=== PATIENT | female | born 2005 | race Two or more races ===

== ENCOUNTER 2025-02-19 15:54 | Emergency (ER) | payer OTHER ==
[~2025-02-19] VITALS: Ht 162.6 cm; Wt 65.8 kg
[2025-02-19] MEDS ORDERED: 0.9 % SODIUM CHLORIDE 1,000 ML IV SCH (16:45)
[2025-02-19 17:21] LABS: BASO % 0.5 % (0.1-1.2); EOS # 0.07 (0.04-0.54); EOS % 1.1 % (0.7-7.0); LYMPH % 17.3 % (19.3-53.1); MEAN CORPUSCULAR HEMOGLOBIN 22.6 pg (25.6-32.2); MONO # 0.47 (0.24-0.82); MONO % 7.4 % (4.7-12.5); NEUT # 4.66 (1.56-6.13); NEUT % 73.1 % (34.0-71.1); PLATELET COUNT 241 K/uL (163-369); RED BLOOD COUNT 3.58 M/uL (3.93-5.22); RED CELL DISTRIBUTION WIDTH 17.6 % (11.6-14.4)
[2025-02-19 17:24] LABS: HEMATOCRIT 25.8 % (34.1-44.9)
[2025-02-19 17:37] LABS: PH,URINE 5.5 (5.0-8.0); URINE APPEARANCE Clear; URINE BILIRRUBIN Negative (NEGATIVE); URINE BLOOD Negative; URINE COLOR Yellow; URINE GLUCOSE Negative (NEGATIVE); URINE KETONE 15 (NEGATIVE); URINE LEUKOCYTE Negative; URINE NITRATE Negative; URINE PROTEIN Trace (NEGATIVE); URINE UROBILINOGEN 0.2 E.U./dl
[2025-02-19 17:38] LABS: URINE BACTERIA 188.4 uL (0.0-1933); URINE EPITHELIAL CELLS 8.6 uL (0.0-38.8); URINE RBC 4.5 uL (0.0-20.8); URINE WBC 3.6 uL (0.0-23.2)
[2025-02-19 17:40] LABS: ALBUMIN 3.5 gm/dL (3.4-5.0); BILIRUBIN TOTAL 0.24 mg/dL (0.3-1.2); CALCIUM 8.9 mg/dL (8.5-10.1); CREATININE SERUM 0.64 mg/dL (0.55-1.02); GFR 118.3; GLOBULINA 3.6 G/DL (2.4-3.5); POTASSIUM 3.63 mEq/L (3.5-5.1); TOTAL PROTEIN 7.1 gm/dL (6.4-8.2)
[2025-02-19 17:46] LABS: URINE CAST 0.14 uL (0.0-1.40)
[2025-02-19 19:06] LABS: HEMOGLOBIN 8.1 g/dL (11.2-15.7)
== END 2025-02-19 20:43 | disposition home or self-care (01) ==
LOC: ER 15:54 → EMR PED 15:59 → ER 15:59 → EMR PED 20:43
DX: E86.0 Dehydration (principal)